=== PATIENT | female | born 1990 | race Caucasian/White ===

== ENCOUNTER → 2022-08-07 | Outpatient (CLI) | payer BC ==
[~2022-08-07] MED LIST: LEVO1TAB7 PO
--- NOTE | 2022-08-07 15:51 | Diagnostic Imaging Report ---
PROCEDURE: US Thyroid. TECHNIQUE: Multiple Real-time grayscale images were obtained of the thyroid in various projections. INDICATION: Neck pain and inflammation. COMPARISON: None. FINDINGS: Right thyroid lobe: Size (cm): 5.5 x 1.9 x 1.9 Echotexture: Normal Vascularity: Normal Nodules: There are multiple subcentimeter cystic nodules in the right thyroid. Isthmus: Size (cm): 0.4 Nodules: None Left thyroid lobe: Size (cm): 5.2 x 1.6 x 2.3 Echotexture: Normal Vascularity: Normal Nodules: There are subcentimeter cystic nodules in the left thyroid. IMPRESSION: Multiple subcentimeter cystic nodules do not warrant followup based on TI-RADS criteria. Dictated by: Dictated on workstation # [id number]
== END ==
LOC: RAD 12:19
PROVIDERS: ATTEND Nurse Practitioner Family
DX: E04.1 Nontoxic single thyroid nodule (principal)
CPT/HCPCS: 76536

== ENCOUNTER → 2022-08-31 | Outpatient (CLI) | payer BC ==
--- NOTE | 2022-08-31 10:28 | Diagnostic Imaging Report ---
INDICATION: Throat tightness and discomfort. Patient ingested effervescent crystals as well as thin and thick barium and imaging of the esophagus was performed in multiple obliquities. 0.8 minutes of fluoroscopic time was utilized. Preliminary radiograph of the chest is unremarkable. The esophagus has a smooth contour. No mass or stricture is identified. No hiatal hernia or gastroesophageal reflux was demonstrated. Images of stomach are unremarkable. IMPRESSION: Unremarkable barium esophagram. Dictated by: Dictated on workstation # [id number]
== END ==
LOC: RAD 09:30
PROVIDERS: ATTEND Nurse Practitioner Family
DX: R07.0 Pain in throat (principal)
CPT/HCPCS: 74220